=== PATIENT | female | born 1990 | race Caucasian/White ===

== ENCOUNTER 2025-04-29 15:41 | Emergency (ER) | payer OTHER, SELFPAY ==
[2025-04-29 15:56] VITALS: BP 105/71; PULSE 92; RESP 16; TEMP 36.8; O2SAT 92
[2025-04-29 16:11] LABS: EDINFLUASCREEN Negative (Negative); EDINFLUBSCREEN Negative (Negative)
--- NOTE | 2025-04-29 16:13 | ED.URI ---
HPI - URI/Sore Throat General Chief Complaint: Upper Respiratory Infection Stated Complaint: VOMITING Time Seen by Provider: 04/29/25 15:57 Source: patient and RN notes reviewed Mode of arrival: ambulatory Limitations: no limitations History of Present Illness HPI Narrative: 35-year-old female patient presents today complaining of nausea, vomiting, diarrhea, fatigue. Symptoms began last night and patient states she had 12 episodes of vomiting between last night lasting until 4:00 a.m. this morning. She has been able to keep down some food and fluids today. Denies fever or abdominal pain, blood or mucus in the stool. Her small child was diagnosed with influenza earlier today and she would like to be evaluated for this. Related Data Allergies Allergy/AdvReac Type Severity Reaction Status Date / Time tetracycline Allergy Intermediate Rash Verified 04/29/25 15:57 PMF Comments At time of signature, I have reviewed and agree with nursing past medical, surgical, social and family history unless otherwise noted. Please see nursing chart for further information. There is no relevant family history pertinent to the presenting complaint Exam Narrative: GENERAL: Well-appearing, well-nourished, and in no acute distress. HEAD: Normocephalic, atraumatic. EYES: EOMI. No redness or drainage. Conjunctivae normal. ENT: Mucous membranes pink and moist. Nares clear. No rhinorrhea. TMs normal bilaterally. Throat normal. Uvula midline. NECK: Normal AROM. Supple. No lymphadenopathy. CHEST: No respiratory distress. Clear to auscultation. HEART: Regular rate and rhythm. No murmur appreciated. ABDOMEN: Soft, nontender, nondistended, normal active bowel sounds. EXTREMITIES: Normal range of motion. No edema. SKIN: Warm, dry, no rash. Capillary refill normal. Normal skin turgor. NEURO: No focal deficits. Alert and oriented x3. Gait steady. PSYCH: Normal affect. No signs of depression or anxiety. Course Course Level of Care: Express Care Visit Vital Signs Vital signs: Vital Signs Temperature 98.3 F 04/29/25 15:56 Pulse Rate 92 04/29/25 15:56 Respiratory Rate 16 04/29/25 15:56 Blood Pressure 105/71 04/29/25 15:56 Pulse Oximetry 92 04/29/25 15:56 Temperature 98.3 F 04/29/25 15:56 Pulse Rate 92 04/29/25 15:56 Respiratory Rate 16 04/29/25 15:56 Blood Pressure 105/71 04/29/25 15:56 Pulse Oximetry 92 04/29/25 15:56 Reviewed [facility] Narrative Medical decision making narrative: 35-year-old female patient presents today complaining of nausea, vomiting, diarrhea, fatigue. Symptoms began last night and patient states she had 12 episodes of vomiting between last night lasting until 4:00 a.m. this morning. She has been able to keep down some food and fluids today. Denies fever or abdominal pain, blood or mucus in the stool. Her small child was diagnosed with influenza earlier today and she would like to be evaluated for this. Exam is normal. Influenza negative. Symptoms likely viral in etiology. Discussed [id number] medication use and duration of illness. Patient declines prescription for Zofran. Anticipatory guidance given. Patient agrees with plan. Vital signs stable. ED precautions given. Differential Diagnosis Differential Diagnosis: Influenza, COVID, viral syndrome, gastroenteritis Lab Data [facility] Lab Attestation statement: I personally reviewed the patient's lab results. Labs: Lab Results 04/29/25 Range/Units 16:09 POC Influenza A Ag Negative (Negative) POC Influenza B Ag Negative (Negative) Critical Care Time Critical Care Time Critical Care Time: No Discharge Plan Discharge Clinical Impression: Nausea vomiting and diarrhea Patient Disposition: Home Condition: Stable Instructions: Acute Nausea and Vomiting (DC), Acute Diarrhea (ED) Additional Instructions: Your influenza swab is negative today. Stay hydrated with water and electrolyte containing fluids. Rest. Follow-up with your PCP if symptoms persist. Go to the ER immediately if symptoms worsen, if your unable to keep down any fluids or have decreased urine output. Patient Language: Estonian Follow-up/Referrals: PHYSICIAN,CUT OUT OPERATOR [Primary Care Provider, Internal Medicine] Time of Disposition: 16:15
== END 2025-04-29 16:18 | disposition home or self-care (01) ==
PROVIDERS: Emergency Provider Nurse Practitioner
DX: R11.2 Nausea with vomiting, unspecified (principal); R19.7 Diarrhea, unspecified
CPT/HCPCS: 87804; 99202; G0463